=== PATIENT | male | born 1970 | race Caucasian/White ===

== ENCOUNTER 2022-07-24 06:12 | Day surgery (SDC) | payer BC ==
[2022-07-24] MEDS ORDERED: Propofol 200 MG/20 ML SDV IV ONE (06:13)
[2022-07-24] MEDS ORDERED: Sodium Chloride 0.9% 10 ML Syringe FLUSH PRN (06:15)
[2022-07-24] MEDS: Lactated Ringers 1,000 ML IV SCH (07:15)
[2022-07-24] MEDS: Simethicone Drops 40 MG/0.6 ML 30 ML Bottle PO ONE (07:16)
== END 2022-07-24 08:52 | disposition home or self-care (01) ==
LOC: FB.SDS 06:12
PROVIDERS: ATTEND Surgery
DX: Z12.11 Encounter for screening for malignant neoplasm of colon (principal); E11.36 Type 2 diabetes mellitus with diabetic cataract; I10 Essential (primary) hypertension; E78.5 Hyperlipidemia, unspecified; K42.0 Umbilical hernia with obstruction, without gangrene; E66.01 Morbid (severe) obesity due to excess calories; Z79.899 Other long term (current) drug therapy; Z79.4 Long term (current) use of insulin; Z98.890 Other specified postprocedural states; Z68.35 Body mass index [BMI] 35.0-35.9, adult
CPT/HCPCS: 00812; 82947; A9270-GY; J2704; J7120